=== PATIENT | male | born 1945 | race Caucasian/White ===

== ENCOUNTER 2016-05-02 | Outpatient (CLI) | payer MEDICARE | END 2016-05-02 12:01 | disposition home or self-care (01) | DX: Z53.9 Procedure and treatment not carried out, unspecified reason (principal) ==

== ENCOUNTER 2016-05-02 | Outpatient (CLI) | payer MEDICARE, OTHER | END 2016-05-02 12:01 | disposition home or self-care (01) ==

== ENCOUNTER 2018-04-30 10:15 | Outpatient (CLI) | payer MEDICARE ==
--- NOTE | 2018-04-30 15:45 | CONSULTATION NOTE ---
Palliative Care Consultation - Referral Referring Provider: Dr. Doyle Ramos Time of Visit: [id number] Referral setting: Assisted living (Patient resides at [facility] dementia unit, is a taxing considerable effort to have him leave for appointments. Patient is seen in his home setting also to facilitate family conference and coordination of care) Referral Reason: Dementia with behavioral disturbances/COPD - Information Sources Records reviewed: Previous records reviewed History/Review of Systems obtained from: Family ( Luna present for visit) Exam limitations: Clinical condition - History of Present Illness Brief History of Present Illness: This is a 73-year-old gentleman who has had ongoing progressive dementia after he had a heart attack in 2010. 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 He was admitted in 06/2015, this is always been a difficult transition for her, she continues to take him home weekly for short periods with the help of dear friend. His irritability and aggressive behaviors have continued to decline, patient is much more quiet and withdrawn, less verbal, but does seem to recognize his at some level with smiling and acknowledgment. She does admit he is sleeping more, verbalization is much less, and when he does it is word salad. He has picked up a "tick" in the last 5 months, does grind and roll his dentures around in his mouth. is concerned, per patient choking. He is on mechanical soft and so far has been managing. He is less ambulatory, is a full 2 person assist to shuffle short distances to the table, mostly wheelchair assist in facility. He is quite stiff, does have some right shoulder discomfort,. 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 Patient has continue with no chest pain, does have some activity intolerance, has not noted much shortness of breath from baseline nor has had any congestive heart failure. Patient was treated one time this late fall for suspected pneumonia at the facility, otherwise has not been hospitalized over the last several years. William jones has shown slow decline, goals remain to focus on comfort and when appropriate transition to hospice in this setting. Medical/Surgical History - Past Medical History Cardiovascular: reports: Hypertension, High cholesterol, Valve disorder, Other (aortic stenosis) Respiratory: reports: COPD Neuro: reports: Alzhiemer's, Dementia (vascular) : reports: Benign prostate hypertrophy, Incontinence Musculoskeletal: reports: Osteoarthritis MRSA Hx?: No - Past Surgical History General: reports: Appendectomy Cardiovascular: reports: Coronary stent - Substance History Use: Uses substance without health or social issues: NONE Social History - Living Situation Living arrangement: Assisted living Support System: Patient and have been for 32 years, they are "a blended family". Patient's son Albert is in the area, reports he does not visit very often but is available if needs assistance. Luna's daughter recently moved up to [place], which is been of help for her to have more support. Patient's 's health is limited as well, she does of visit daily, does assist with feeding him at lunch. 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 is supported by restorationism members for multiple tasks and is very grateful. Family History - Family History Family History: Mother: ( at 62 complications of obesity), COPD/Emphysema, Father: , Sister: Alive and Well (still alive unknown health issues), Brother: Alive and Well Medications/Allergies - Medications Home Medications: Ambulatory Orders Medication Instructions Recorded Confirmed Amlodipine Besylate 10 mg PO DAILY 03/05/13 04/30/18 Losartan [Cozaar] 25 mg PO DAILY 03/05/13 04/30/18 Terazosin HCl 4 mg PO BID 03/05/13 04/30/18 Theophylline Anhydrous 400 mg PO DAILY 03/05/13 04/30/18 [Theophylline] Acetaminophen [Tylenol Extra 650 mg PO TID 04/27/14 04/30/18 Strength] Cholecalciferol (Vitamin D3) 1,600 units PO BID 04/27/14 04/30/18 [Vitamin D-3] Docusate Sodium 250Mg Capsule 250 mg PO BID 04/27/14 04/30/18 [Colace 250Mg Capsule] Senna [Senokot] 8.6 mg PO .QOD 04/27/14 04/30/18 Bisacodyl Supp [Dulcolax Supp] 10 mg AL DAILY PRN 04/30/18 04/30/18 Dextromethorphan HBr [Tussin Cough] 2.5 ml PO Q3HR PRN 04/30/18 04/30/18 Hydrocortisone 1% Oint 1 applic TOP .3 X WEEK 04/30/18 04/30/18 [Hydrocortisone] Ketoconazole [Nizoral] 1 applic TOP .2 X WEEK MDD scalp 04/30/18 04/30/18 Loperamide [Imodium] 2 mg PO DAILY PRN 04/30/18 04/30/18 Magnesium Hydroxide [Milk of 30 ml PO DAILY PRN 04/30/18 04/30/18 Magnesia] Prednisone 5 mg PO DAILY 04/30/18 04/30/18 - Allergies Allergies/Adverse Reactions: Allergies Allergy/AdvReac Type Severity Reaction Status Date / Time No Known Drug Allergies Allergy Verified 03/05/13 10:40 Review of Systems - Constitutional Constitutional: reports: Fatigue, Fever (reports intermittent), Weight stable - Ears, Nose & Throat Ears, Nose & Throat: reports: Dentures (poorly fitting; plays with incessently), Other (reports no choking but moves dentures around; makes meal times quite long) - Gastrointestinal Gastrointestinal: reports: Good appetite - Genitourinary Genitourinary: reports: Incontinence - Musculoskeletal Musculoskeletal: reports: Stiffness, Muscle weakness, Joint pain (right shoulder), Transfer issues (2 person assist with transfers/ambulation wtih walker; needs cueing and assistance) - Integumentary Integumentary: reports: Dryness - Neurological Neurological: reports: General weakness, Memory problems - All Other Systems All Other Systems: reports: Other (limited ROS) Physical Exam - Vital Signs Temperature: 97.0 C Pulse Rate: 63 Respiratory Rate: 18 O2 Saturation: 96 (ra @ rest) Blood Pressure: 122/62 - Physical Exam General Appearance: positive: No acute distress, Anxious, Lethargic Eyes Bilateral: positive: Normal inspection ENT: positive: No signs of dehydration, Other (clacking dentures in mouth through visit;) Neck: positive: No JVD, Trachea midline Cardiovascular: positive: Regular rate & rhythm, Systolic murmur Respiratory: positive: Diminished in bases. negative: Wheezes, Rales, Rhonchi Abdomen: positive: Non-tender, Soft, Nml bowel sounds Skin: positive: Pallor, Dryness Extremities: positive: No pedal edema Neurologic/Psychiatric: positive: Disoriented to person (birghtens up when in line of sight;), Disoriented to place, Disoriented to time, Weakness, Un intelligible speech, Flat affect Palliative Care - POLST Patient has POLST: Yes POLST Status: DNR, Comfort Measures Pain: Location ( reports right shoulder discomfort with movement noted) Drowsiness/Sedation: Moderate (4-6) Performance Status: Patient has had slow functional decline, now requires 2 person assist for shuffling short distances. Totally assistance with feeding, bathing, and management of incontinence. - Palliative Care Discussion: Met with Luna his , She does recognize his ongoing slow decline. Does want to continue to focus on a comfort focused approach. She still enjoys bringing him home weekly with the assistance of her friend. Though patient only sits he does seem to have some acknowledgment of both her and at least change of setting. She does see him on a daily basis, she really does not have unrealistic expectations, she does find it quite difficult to have him in home place with multiple concerns regarding shortage of staff, patient getting his care needs met, and wishes should her health was such that she could take him home. At end of life, she would like him to transition and be cared for at hospice in the facility. She has been there long enough to see how this works, but is aware he is not at that point. We visited my question from last time, as her health is quite frail as well, but plan would be if she were to first. She is feeling somewhat more vulnerable, and is planning to follow through on this after much conversation regarding her concerns and family dynamics. Patient does not have high symptom burden, behaviors are currently controlled with distraction and redirection. Patient has been treated one time for pneumonia back in February, continues with a slow steady functional and cognitive decline. But no acute hospitalizations, no falls, and no weight loss. Conversation was had given her concern about advanced care planning, she had stopped theophylline short period, we did discuss in the context of comfort managing chronic conditions is a comfort measure and quality of life measure as well. This did reassure her going forwardCounseling provided regarding the role of palliative care, will continue to provide support and be available, particularly in the transition of changing PCPs. Impression and Recommendations - Palliative Care Impression: This is a 73-year-old gentleman with the unfortunate diagnosis of severe dementia, continues with very slow functional and cognitive decline. He does have known severe aortic stenosis, but is remained weight neutral, and only one episode of pneumonia in the context of other residents with illness as well. Patient does present with increasing risk of aspiration, but otherwise presents with low symptom burden. Palliative care to provide support and be available for changes in condition, and transition to hospice when appropriate Recommendations/Counseling Done: 1. Dysphagia. Currently without choking, though does put himself at high risk secondary to poor fitting dentures and eating around this. He is on mechanical soft, significant and lengthy conversation regarding transition to pure. Counseling provided regarding threshold, risk and benefits, will let me know if she would like diet changed. 2. COPD. Patient has had one episode of pneumonia last fall, otherwise is remained quite stable. has not noticed any increased difficulty with breathing. Patient no longer able to do inhalers, PCP has him on low-dose prednisone. Patient without any wheezing appears to be appropriate plan. 3. Advanced care planning. Counseling provided in review of goals with , plans to continue take him home weekly as long as has adequate support for this, very grateful for friend who has been very supportive of this process. Agreed will visit again in 6-8 weeks unless other issues come up, patient remains fairly stable. Patient scores 11.4 on the Hossein index. This looks looks that assisted adults age 65 and older and 6-month survival. This calculates out to 20% 6- month mortality. Risk calculators cannot predict the future for any one individual, but gives an estimate of how many people with similar risk factors will live and but not who will live and who will . This is in comparison to two years ago where he was at 14%. Time Spent: 60 minutes with greater than 50% of this done with counseling for advanced care planning and anticipatory guidance with , coordination of care with staff, and establishment of rapport and familiarity with patient.
== END 2018-04-30 10:16 | disposition home or self-care (01) ==
LOC: PC 10:15
PROVIDERS: ATTEND Nurse Practitioner Adult Health
DX: Z51.5 Encounter for palliative care (principal); F03.91 Unspecified dementia, unspecified severity, with behavioral disturbance; J44.9 Chronic obstructive pulmonary disease, unspecified; I35.0 Nonrheumatic aortic (valve) stenosis; N40.1 Benign prostatic hyperplasia with lower urinary tract symptoms; N39.498 Other specified urinary incontinence; R13.10 Dysphagia, unspecified; K08.89 Other specified disorders of teeth and supporting structures; M19.90 Unspecified osteoarthritis, unspecified site; Z99.3 Dependence on wheelchair; Z95.5 Presence of coronary angioplasty implant and graft; Z79.52 Long term (current) use of systemic steroids; Z66 Do not resuscitate; Z87.01 Personal history of pneumonia (recurrent)

== ENCOUNTER 2018-05-27 17:26 | Outpatient (CLI) | payer MEDICARE, OTHER ==
--- NOTE | 2018-05-27 18:49 | CONSULTATION NOTE ---
Palliative Care Follow Up - Referral Referring Provider: Dr. Doyle Whittington Time of Visit: [phone] Referral setting: Assisted living (patient resides at [facility] a memory care unit; home visit made to facilitate care plan; given advanced dementia it is a taxing and considerable effort to leave the facililty) Referral Reason: Dysphagia/Dementia - Information Sources Records reviewed: RN notes reviewed, Previous records reviewed History/Review of Systems obtained from: Patient, Family ( Luna present for visit), Caregiver (clinical staff) Exam limitations: Clinical condition (patient with advanced dementia; nonverbal) - History of Present Illness Update Brief HPI Update: This is a 73-year-old gentleman who has ongoing progressive dementia, this was exacerbated after he had a heart attack in 2010. 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 Patient is continued to decrease in function, has a shuffled gait that needs two person assist, to go short distances. At times, needs full pivot transfer to wheelchair. Patient is nonverbal, he does have some word salad at times, but is mostly quiet. He is quite stiff, does have right shoulder discomfort with any kind of movement. Patient very concerned, as patient has decreased oral intake significantly over the last week, there had been concern with his choking, he had developed a tic rubbing his lower loose dentures. They had done some modification as far as her soft diet, she did ask for a pured diet yesterday. On examination, removed patient's dentures, patient does have a full mouth of oral candidiasis, most likely adding to his discomfort, and resistance to eating. Patient did have a short acute sounds like viral illness, on 05/15. He had a temp of 102. He slept quite frequently through the time during this episode. B ecause of the inclement weather, and his decline, he has not been home for several weeks. able to acknowledge patient is declining, remains quite hopeful though and perceives quality of life and visiting him on a daily basis, she does come assist him with lunch. Patient has not had any acute weight loss, is remaining stable about 170 currently. Social History - Living Situation Living arrangement: Assisted living Living Situation: Alone Support System: does oversee care, and she fluctuates as far as her satisfaction with care delivered. She provides feeding at least 1 meal a day, is very attentive. Medications/Allergies - Medications Home Medications: Ambulatory Orders Medication Instructions Recorded Confirmed Amlodipine Besylate 10 mg PO DAILY 03/05/13 05/28/18 Losartan [Cozaar] 25 mg PO DAILY 03/05/13 05/28/18 Terazosin HCl 4 mg PO BID 03/05/13 05/28/18 Theophylline Anhydrous 400 mg PO DAILY 03/05/13 05/28/18 [Theophylline] Acetaminophen [Tylenol Extra 650 mg PO TID 04/27/14 05/28/18 Strength] Docusate Sodium 250Mg Capsule 250 mg PO BID 04/27/14 05/28/18 [Colace 250Mg Capsule] Senna [Senokot] 8.6 mg PO .QOD 04/27/14 05/28/18 Bisacodyl Supp [Dulcolax Supp] 10 mg DC DAILY PRN 04/30/18 05/28/18 Dextromethorphan HBr [Tussin Cough] 2.5 ml PO Q3HR PRN 04/30/18 05/28/18 Hydrocortisone 1% Oint 1 applic TOP .3 X WEEK 04/30/18 05/28/18 [Hydrocortisone] Ketoconazole [Nizoral] 1 applic TOP .2 X WEEK MDD scalp 04/30/18 05/28/18 Loperamide [Imodium] 2 mg PO DAILY PRN 04/30/18 05/28/18 Magnesium Hydroxide [Milk of 30 ml PO DAILY PRN 04/30/18 05/28/18 Magnesia] Prednisone 5 mg PO DAILY 04/30/18 05/28/18 Fluconazole 100 mg PO .Q48 X 3 DOSES MDD 3 05/28/18 05/28/18 doses total - Allergies Allergies/Adverse Reactions: Allergies Allergy/AdvReac Type Severity Reaction Status Date / Time No Known Drug Allergies Allergy Verified 03/05/13 10:40 Review of Systems - Constitutional Constitutional: reports: Fatigue, Weight stable (170) - Ears, Nose & Throat Ears, Nose & Throat: reports: Dentures, Dry mouth - Gastrointestinal Gastrointestinal: reports: Poor appetite - Genitourinary Genitourinary: reports: Incontinence - Musculoskeletal Musculoskeletal: reports: Stiffness, Muscle weakness, Joint pain (right shoulder) - Integumentary Integumentary: reports: Dryness - Neurological Neurological: reports: General weakness, Memory problems - All Other Systems All Other Systems: reports: Other (limited ROS) Physical Exam - Vital Signs Temperature: 97.5 C Pulse Rate: 92 Respiratory Rate: 18 O2 Saturation: 97 (ra @ rest) Blood Pressure: 112/64 - Physical Exam General Appearance: positive: No acute distress, Alert, Anxious (with changing positions) Eyes Bilateral: positive: Normal inspection ENT: positive: Other (removed dentures/white patches on buccally and tongue;) Neck: positive: No JVD, Trachea midline Cardiovascular: positive: Regular rate & rhythm Respiratory: positive: Diminished throughout Abdomen: positive: Non-tender, Soft Skin: positive: Pallor, Dryness. negative: Pressure wound Extremities: positive: No pedal edema Neurologic/Psychiatric: positive: Weakness, Other (occasional word/fairly non verbal; does make eye contact; does not feel recognizes her anymore; sleeping between meals more difficult to arouse) Palliative Care - POLST Patient has POLST: Yes POLST Status: DNR, Comfort Measures Pain: Pain unchanged, Location (right shoulder; grimaces with movement or change of position) Drowsiness/Sedation: Severe (7-10) Performance Status: Patient is spending more time sleeping, has not been on the facility for his usual Sunday visits for 3 weeks now. This is been due to functional decline as well as inclement weather. Patient is dependent on caregivers for feeding, bathing, dressing, and is incontinent of both bowel and bladder. - Palliative Care Discussion: Met with Luna, she is quite tearful and somewhat fragile emotionally. She does know he is functionally and cognitively declining, though this acute change really through her for loop. She is pleased that there might be something to intervene, though I did review patient has been declining over the last several weeks to months, and this is another sign of immunocompromise as well as things are starting to change. Her days are quite focused on supporting her Albert. Impression and Recommendations - Palliative Care Impression: This is a 73-year-old gentleman with unfortunate diagnosis of severe dementia, continues with both functional and cognitive decline. He presents acutely with decreased intake, on examination does present with oral candidiasis. Patient has remained weight neutral, does present with increasing risk of aspiration, and is sleeping more. Palliative care to provide support and be available for changes in condition and transition to hospice when appropriate. Recommendations/Counseling Done: 1. Oral candidiasis. Counseling to staff to remove dentures after eating, for 2 weeks. Patient is on pured diet, will continue currently given patient's decreased intake and increased risk of choking. Consult with PCP Dr. Whittington, fluconazole 100 mg ordered every 48 hours x3 doses. 2. Dysphagia. Patient has been transition to pure, had been weighing risks and benefits of moving forward with this at our last visit. Patient difficulty wearing dentures as they do not fit well, now presents with oral candidiasis. Will monitor for 2-3 weeks, and revisit if can progress diet back to mechanical soft. I suspect patient will need to stay at current level. She reports he is able to eat this without any difficulty last night when she fed him. 2. COPD. Patient had one episode of pneumonia last fall, he did present earlier this month with high temperature and some viral symptoms. Patient on low-dose prednisone for support. Patient without any wheezing or shortness of breath at this point in time. 4. Advanced care planning. Patient is to transition to Dr. Saunders, she does feel like she was able to take him to that appointment. We did discuss in the context of continuing palliative care will get a new referral. It is much easier to see him in the facility, though she does understand palliative care is a consultative service and will need a primary care provider to work with. Reassured her have worked with Dr. Saunders several times with other patients. She is quite anxious and transitioning from Dr. whittington, reassured will continue support for her . Will CC Dr. Saunders per request of in preparation for pending visit next week. Time Spent: 45 minutes with greater than 50% of this done in coordination of care with clinical staff and PCP to manage oral candidiasis, family meeting with , provided anticipatory guidance.
== END 2018-05-27 17:27 | disposition home or self-care (01) ==
LOC: PC 17:26
PROVIDERS: ATTEND Nurse Practitioner Adult Health
DX: Z51.5 Encounter for palliative care (principal); F03.91 Unspecified dementia, unspecified severity, with behavioral disturbance; J44.9 Chronic obstructive pulmonary disease, unspecified; R13.10 Dysphagia, unspecified; B37.0 Candidal stomatitis; M25.511 Pain in right shoulder; Z66 Do not resuscitate; Z79.52 Long term (current) use of systemic steroids; I25.2 Old myocardial infarction

== ENCOUNTER 2018-06-03 10:15 | Outpatient (CLI) | payer MEDICARE, OTHER ==
--- NOTE | 2018-06-03 12:36 | CONSULTATION NOTE ---
Palliative Care Follow Up - Referral Referring Provider: Dr. Whittington Time of Visit: 4227-8636 Referral setting: Assisted living Referral Reason: Aspiration pneumonia/Dementia - Information Sources Records reviewed: RN notes reviewed, Previous records reviewed History/Review of Systems obtained from: Family ( Luna at visit;), Caregiver (clinical staff) Exam limitations: Clinical condition (patient lethargic/nonresponsive) - History of Present Illness Update Brief HPI Update: This is a 73-year-old gentleman who has ongoing progressive dementia, this is exacerbated after heart attack in 2010. 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 This is been an o ngoing difficult transition for his Luna. Patient has had increasing functional and cognitive decline most acutely since February, but she does perceive over the year that things have been getting worse. For the last couple weeks he had increased trouble with swallowing choking most recently was found to have last week oral candidiasis. He was changed to a pured diet, over the week and continue to have difficulty with coughing and choking to the point he was unable to take his medications last night, and they have been using thickened liquids. On exam today patient has moist cough, difficulty clearing secretions. Does have scattered rhonchi anteriorly, he is not in respiratory distress, but he is hypoxic off of the oxygen. His current oxygen was 99% on 2 L, but staff had initiated after they found him in the 80s. Patient is quite tacky at 112, he is not feverish, though does feel warm to touch. His blood pressure is 92/52 and weak and thready as well. Patient has had decreased intake over the last week, today he presents with a PPS of 10%, and appears to be actively transitioning. He has not had any acute weight loss, and remained stable about 170, he has had intermittent viral illnesses, but no hospitalizations. Palliative care met with regarding goals of care, patient unable to take oral medications, so unable to consider weighing benefits and burdens of antibiotics, did discuss in the context the patient was most likely with hours to days, she would like him kept comfortable. Discontinued oral medications and initiated palliative medications of morphine and lorazepam. Contact with PCP Dr. whittington, will transition to hospice services when available. Social History - Living Situation Living arrangement: Assisted living Support System: Patient and have been 32 years, they are blended family. Patient's son Albert whom I spoke with, had been up about 3 weeks ago. Luna's daughter has recently moved to the area and has been more of a support to her. She has though been diligent as far as visiting daily, assisting with feeding, and now is at the bedside. They do have strong connections with her yazidism, the filtering machine tender helper comes every Sunday, she has multiple friends that she depends on who are quite supportive and they were leaving as I was coming Reji and his . Concern for bereavement risk for , this has been "her reason to get up every morning", She does believe he is going to better place and will be out of his misery and suffering. She had cared for him at home as long as possible, but she herself has multiple health problems. Medications/Allergies - Medications Home Medications: Ambulatory Orders Medication Instructions Recorded Confirmed Bisacodyl Supp [Dulcolax Supp] 10 mg MA DAILY PRN 04/30/18 05/28/18 Hydrocortisone 1% Oint 1 applic TOP .3 X WEEK 04/30/18 05/28/18 [Hydrocortisone] Ketoconazole [Nizoral] 1 applic TOP .2 X WEEK MDD scalp 04/30/18 05/28/18 LORazepam [Ativan] 0.5 mg PO Q4HR PRN 06/03/18 06/03/18 Morphine Sulfate [Morphine Sulf 5 mg PO .Q2 PRN 06/03/18 06/03/18 Oral (Roxanol)] - Allergies Allergies/Adverse Reactions: Allergies Allergy/AdvReac Type Severity Reaction Status Date / Time No Known Drug Allergies Allergy Verified 03/05/13 10:40 Review of Systems - Constitutional Constitutional: reports: Fatigue, Malaise, Poor appetite (no intake today), Weight stable (169). denies: Fever - Ears, Nose & Throat Ears, Nose & Throat: reports: Hearing loss, Hearing aids, Dentures, Dry mouth - Respiratory Respiratory: reports: Cough (moist; unable to clear), SOB with exertion. denies: SOB at rest (no distress noted) - Genitourinary Genitourinary: reports: Incontinence - Musculoskeletal Musculoskeletal: reports: Stiffness, Limited range of motion, Muscle weakness, Joint pain (right shoulder painful), Transfer issues (patient unable to bear weight or assist with transfer observed today) - Integumentary Integumentary: reports: Dryness - Neurological Neurological: reports: Memory problems - Psychiatric Psychiatric: reports: Other (lethargic) - All Other Systems All Other Systems: reports: Other (limited ROS) Physical Exam - Vital Signs Temperature: 97.2 C Pulse Rate: 112 Respiratory Rate: 18 O2 Saturation: 99 (on 2 liters) Blood Pressure: 92/52 (weak and difficult to ausculate) - Physical Exam General Appearance: positive: Lethargic Eyes Bilateral: positive: Other (eyes mostly closed) ENT: positive: Dry mucous membranes Cardiovascular: positive: Tachycardia Respiratory: positive: Diminished in bases, Rhonchi, Other (moist cough) Abdomen: positive: Non-tender (no pain behaviors), Soft Skin: positive: Pallor Extremities: positive: No pedal edema Palliative Care - POLST Patient has POLST: Yes POLST Status: DNR, Comfort Measures Pain: Pain improved (had been experiencing knee pain; no pain behaviors at visit) Tiredness/Fatigue: Severe (7-10) Drowsiness/Sedation: Severe (7-10) Performance Status: Patient's functional status has been declining over the last several weeks to months. Patient does have a hyperextended posture when he is assisted with walking, shuffled gait to person ambulation prior to this visit last week. Patient full 2 person lift and transfer from recliner into wheelchair. Patient is dependent for feeding, and all ADLs. Patient currently is not been able to eat or swallow since last night. Would put him at a PPS of 10% - Palliative Care Discussion: Met with regarding goals of care, did discuss in the context of patient's acute on chronic illness and decline, most likely can be attributed to his aspiration pneumonia. has known patient has been deteriorating, but she is quite attentive and visits daily. It is her reason for getting up in the morning, she does understand he has been changing is is not recognized her lately, she is developing him home weekly with the help of her friend Reji, she reports he has not been home for over a month. She very much would like to have them at home, but given her health issues herself, cannot take care of him. She is planning to be at his bedside for as long as she can tolerate. She has had discontent with the care provided, but is aware of the limitations of the setting and she has not had any further options. She does believe he is going to a better place, she had hoped that he would in his sleep, is somewhat distressed that he is having suffering and this is going to be his dying experience. We did discuss in the context of medications, the comfort medications are to help him with that transition, not to hasten his . She was a bit alarmed about morphine, but was able to agree goal is comfort, and is a tool at this time. Given patient's rapid decline, did do some anticipatory guidance regarding most likely hours to days, would be surprised if patient recovers from this episode, but it does happen. She is quite torn weighing losing her companionship and purpose with Albert, versus him being relieved of his suffering. Did encourage her to contact her filtering machine tender helper, and friends to provide her ongoing support. Did discuss in the context of goals, she would like transition to hospice. Hospice benefit and expectations reviewed, given unknown at that time if able to admit, reassured staff had tools to keep him comfortable. Impression and Recommendations - Palliative Care Impression: This is a 73-year-old gentleman with the unfortunate diagnosis of dementia, now presenting with aspiration pneumonia, and has had ongoing functional and cognitive decline over the last several weeks and now acutely over the last several days. Goals discussed today, will transition to comfort measures, and admit to hospice when available. Recommendations/Counseling Done: 1. Aspiration pneumonia. Patient no longer able to take oral medications are oral intake. Oral medications were discontinued, counseling provided regarding transition to comfort medications and goals of comfort meds. Will continue with order of oxygen at 2-4 L for comfort, reassured patient appears other than with moist cough, oxygen a comfort measure but not necessary nor life prolonging. 2. COPD. Patient has been on low-dose prednisone and theophylline for support, at this point in time patient does not present with respiratory distress, but will initiate morphine 5 mg every 2 hours as needed respiratory distress and/or discomfort. 3. BPH. Patient off his Terazosin, will need to evaluate for concerns for urinary retention given both discontinuing terazosin and initiation of morphine. May need Urrutia catheter placement for comfort. 4. Advanced care planning. Long discussion regarding goals of care, provided anticipatory guidance, counseling provided regarding hospice, comfort measures, and transition. Patient is signed up with [facility] and plans are in place, Did call patient's son Albert Sanchez Rodney update for Luna, to let him know father is transitioning. He has a very clear idea of the expected trajectory, and is not surprised. He will be up on the weekend if patient is still alive. Call to PCP Dr. whittington with report, as well as coordination of care with hospice team, will admit as soon as possible. In the meantime will deliver oxygen and mattress for comfort Time Spent: 60 minutes with greater than 50% of this done in counseling regarding goals of care, comfort measures, transition to hospice, anticipatory guidance as well as coordination of care with hospice and PCP
== END 2018-06-03 10:16 | disposition home or self-care (01) ==
LOC: PC 10:15
PROVIDERS: ATTEND Nurse Practitioner Adult Health
DX: Z51.5 Encounter for palliative care (principal); J69.0 Pneumonitis due to inhalation of food and vomit; J44.9 Chronic obstructive pulmonary disease, unspecified; N40.0 Benign prostatic hyperplasia without lower urinary tract symptoms; R13.10 Dysphagia, unspecified; R09.02 Hypoxemia; F03.90 Unspecified dementia, unspecified severity, without behavioral disturbance, psychotic disturbance, mood disturbance, and anxiety; I35.0 Nonrheumatic aortic (valve) stenosis; I25.2 Old myocardial infarction; Z66 Do not resuscitate; Z99.81 Dependence on supplemental oxygen